=== PATIENT | male | born 1965 | race Caucasian/White ===

== ENCOUNTER → 2018-11-17 | Outpatient (REF) | payer BC, OTHER | LOC: ZZSENDIN 14:06 | PROVIDERS: ATTEND Orthopaedic Surgery Hand Surgery | DX: M65.861 Other synovitis and tenosynovitis, right lower leg (principal) | CPT/HCPCS: 88304 ==

== ENCOUNTER → 2018-11-30 | Outpatient (CLI) | payer BC ==
--- NOTE | 2018-11-30 16:17 | RADIOLOGY IMAGING REPORT ---
FACILITY: [facility] [place] PATIENT NAME: Carlos Manuel Cosby : 1965 MR: [id number] V: [id number] EXAM DATE: ORDERING PHYSICIAN: CHALINO SERRANO TECHNOLOGIST: Location: [facility] Patient: Carlos Manuel Cosby : 1965 Visit/Account:[id number] Date of Sevice: 11/30/2018 Exam type: US VENOUS LOWER EXT RT History: Right knee surgery, pain and swelling Comparison: None. Findings: The right lower extremity veins were imaged including the right common femoral vein, greater saphenou s vein, superficial femoral vein, profunda femoral vein, popliteal vein, posterior tibial vein, peron eal vein and anterior tibial veins revealing no evidence of intraluminal thrombi. The veins were com pressible and demonstrated augmentation. Incidentally noted is a hypoechoic collection over the ante rior right knee IMPRESSION: 1. No sonographic evidence DVT involving the right lower extremity veins Incidentally noted is a hypoechoic collection over the anterior right knee Report Dictated By: Maria G Lopez MD at 11/30/2018 4:09 PM Report E-Signed By: Maria G Lopez MD at 11/30/2018 4:12 PM WSN:[id number]
== END ==
LOC: US 15:06
PROVIDERS: ATTEND Orthopaedic Surgery Hand Surgery
DX: M25.561 Pain in right knee (principal); M25.461 Effusion, right knee; Z98.890 Other specified postprocedural states